=== PATIENT | female | born 1930 | race Caucasian/White ===

== ENCOUNTER 2016-07-23 17:36 | Inpatient (IN) | payer OTHER ==
[~2016-07-23] VITALS: Ht 157.5 cm; Wt 57.8 kg
[~2016-07-23 17:36] MED LIST: ACID REDUCER 1150 MG PO; ADULT SUPPOSIT1 EACH PR; ARICEPT5 MG PO; ARTIFICIAL TEAR1510 BOTH EYES; ARTIFICIALS TEA30 ML BOTH EYES; ASPIR 8181 M1 PO; ASPIRIN325 MG PO; ASPIRIN81 M2 PO; Aspirin Chewable PO; CALCIUM MAGNESIUM ZI; CALCIUM/MAGNES1 EACH PO; CALTRATE PLUS1 EACH PO; COLACE100 MG PO; FOLIC ACID; FOLIC ACID1 MG PO; HYDROCHLOROTHIA25 MG PO; IRON PO; IRON325 M1 PO; Keppra PO; LIDOCAINE700 MG TD; LIPITOR10 MG PO; LISINOPRIL40 MG PO; LUBRIFRESH PM3.5 GM RIGHT EYE; Lipitor PO; Lopressor PO; METHOTREXATE2.5 MG PO; METOPROLOL TART25 MG PO; METOPROLOL TART50 MG PO; MILK OF MAGN PO; MULTI VITAMIN1 EACH PO; NAMENDA10 MG PO; NEURONTIN300 MG PO; NORVASC5 MG PO; OMEPRAZOLE20 MG PO; PLAVIX75 MG PO; PROBIOTIC1 EAC1 PO; Plavix PO; TYLENOL REGULA325 MG PO; TYLENOL WITH C1 EACH PO; ULTRAM50 MG PO; VITAMIN B PO; VITAMIN D-3 PO; VITAMIN D1000 UNIT PO; VITAMIN E400 UNIT PO; Vitamin B Complex PO; Vitamin-E PO; XANAX0.25 MG PO; XANAX0.5 MG PO; Xanax PO; ZOFRAN4 MG PO; Zantac,Taladine PO; [UNRECOGNIZED DRUG - OTHER] PO
[2016-07-23] MEDS ORDERED: TRAMADOL HCL50 MG PO (21:05)
[2016-07-23] MEDS ORDERED: BENGAY113 GM TP (21:07)
[2016-07-23] MEDS ORDERED: ACIDOPHILUS PR1 EACH PO (21:09)
[2016-07-23 21:11] LABS: HEMATOCRIT 54.7 % (36.0-46.0); MCH 28.4 PG (29.0-34.0); MCHC 33.1 G/DL (30.0-36.0); MCV 85.7 FL (83-99); MEAN PLAT.VOLUME 10.3 uM^3 (9.5-12.4); PLATELET COUNT 445 K/uL (156-360); RBC DIS.WIDTH-CV 21.4 % (11.8-14.6); RBC DIS.WIDTH-SD 63.3 % (39-53); RED BLOOD COUNT 6.38 M/uL (3.80-5.20); WHITE BLOOD COUNT 8.3 K/uL (4.1-10.2)
[2016-07-23 21:15] LABS: POTASSIUM ND MEQ/L (3.7-5.4)
[2016-07-23] MEDS ORDERED: ROBITUSSIN100 MG/5 M PO (21:20)
[2016-07-23] MEDS ORDERED: BENADRYL25 MG PO (21:20)
[2016-07-23 21:23] LABS: CHLORIDE 96 mEq/L (99-109); SODIUM 125 mEq/L (136-147)
[2016-07-23 21:24] LABS: GLUCOSE 98 mg/dL (70-99)
[2016-07-23 21:26] LABS: ANION GAP 11 MEQ/L (2-14)
[2016-07-23 21:28] LABS: GFR ESTIMATE (CALCULATED) > 59 mL/min/
[2016-07-23 21:29] LABS: UREA NITROGEN (BUN) 13 mg/dL (9-23)
[2016-07-23 23:04] VITALS: BP 150/85
[2016-07-24 04:33] VITALS: BP 132/79
[2016-07-24 05:56] LABS: HEMATOCRIT 53.8 % (36.0-46.0); MCH 29.1 PG (29.0-34.0); MCHC 32.9 G/DL (30.0-36.0); MCV 88.3 FL (83-99); MEAN PLAT.VOLUME 9.9 uM^3 (9.5-12.4); PLATELET COUNT 362 K/uL (156-360); RBC DIS.WIDTH-SD 62.7 % (39-53); RED BLOOD COUNT 6.09 M/uL (3.80-5.20); WHITE BLOOD COUNT 6.4 K/uL (4.1-10.2)
[2016-07-24 06:46] LABS: ANION GAP 10 MEQ/L (2-14); CHLORIDE 98 MEQ/L (99-109); GFR ESTIMATE (CALCULATED) > 59 mL/min/; GLUCOSE 139 mg/dL (70-99); POTASSIUM 4.1 MEQ/L (3.7-5.4); SAMPLE HEMOLYSIS CHECK 0; SAMPLE ICTERIC CHECK 0; SAMPLE LIPEMIA CHECK 0; SODIUM 131 MEQ/L (136-147); UREA NITROGEN (BUN) 13 mg/dL (9-23)
[2016-07-24 08:00] VITALS: BP 127/83
[2016-07-24 12:00] VITALS: BP 119/67
[2016-07-24 16:00] VITALS: BP 112/63
[2016-07-24 21:31] VITALS: BP 127/68
[2016-07-25] VITALS (8 sets, daily range): BP systolic 120–153; BP diastolic 62–87
[2016-07-25 07:05] LABS: HEMATOCRIT 50.5 % (36.0-46.0); MCH 28.9 PG (29.0-34.0); MCHC 32.7 G/DL (30.0-36.0); MCV 88.4 FL (83-99); MEAN PLAT.VOLUME 9.8 uM^3 (9.5-12.4); PLATELET COUNT 397 K/uL (156-360); RBC DIS.WIDTH-CV 19.8 % (11.8-14.6); RBC DIS.WIDTH-SD 62.7 % (39-53); RED BLOOD COUNT 5.71 M/uL (3.80-5.20)
[2016-07-25 07:15] LABS: WHITE BLOOD COUNT 16.1 K/uL (4.1-10.2)
[2016-07-25 07:26] LABS: ANION GAP 8 MEQ/L (2-14); CHLORIDE 99 MEQ/L (99-109); GFR ESTIMATE (CALCULATED) 56 mL/min/; POTASSIUM 4.4 MEQ/L (3.7-5.4); SAMPLE HEMOLYSIS CHECK 0; SAMPLE ICTERIC CHECK 0; SAMPLE LIPEMIA CHECK 0; SODIUM 130 MEQ/L (136-147); UREA NITROGEN (BUN) 18 mg/dL (9-23)
[2016-07-25 07:31] LABS: GLUCOSE 83 mg/dL (70-99)
[2016-07-25 09:55] LABS: ABS NEUTROPHIL COUNT 13.64; ANISOCYTOSIS 1+; DELETE MACHINE DIFF? YES; EOSINOPHIL ABS CT 0.16; MACROCYTES OCC; PLAT.SUFFICIENCY INCREASED; SPHEROCYTES OCC; USER ID SDF
[2016-07-25] MEDS ORDERED: PREDNISONE10 MG PO (11:31)
[2016-07-25] MEDS ORDERED: AMLODIPINE BESY10 MG PO (11:31)
[2016-07-26 04:16] VITALS: BP 110/59
[2016-07-26 08:16] VITALS: BP 148/71
[2016-07-26 10:30] LABS: HEMATOCRIT 49.9 % (36.0-46.0); MCH 29.1 PG (29.0-34.0); MCHC 32.5 G/DL (30.0-36.0); MCV 89.7 FL (83-99); MEAN PLAT.VOLUME 9.8 uM^3 (9.5-12.4); PLATELET COUNT 363 K/uL (156-360); RBC DIS.WIDTH-CV 20.1 % (11.8-14.6); RBC DIS.WIDTH-SD 64.2 % (39-53); RED BLOOD COUNT 5.56 M/uL (3.80-5.20)
[2016-07-26 10:31] LABS: WHITE BLOOD COUNT 10.4 K/uL (4.1-10.2)
[2016-07-26 10:55] LABS: ANION GAP 8 MEQ/L (2-14); CHLORIDE 103 MEQ/L (99-109); GFR ESTIMATE (CALCULATED) > 59 mL/min/; GLUCOSE 88 mg/dL (70-99); MAGNESIUM 1.9 mg/dl (1.3-2.7); POTASSIUM 4.1 MEQ/L (3.7-5.4); SAMPLE HEMOLYSIS CHECK 0; SAMPLE ICTERIC CHECK 0; SAMPLE LIPEMIA CHECK 0; SODIUM 136 MEQ/L (136-147); UREA NITROGEN (BUN) 14 mg/dL (9-23)
[2016-07-26 12:07] VITALS: BP 124/73
[2016-07-26 12:26] LABS: ADD MIUA? NO; BILIRUBIN NEGATIVE; BLOOD NEGATIVE; COLOR YELLOW ((YELLOW)); GLUCOSE (STRIP) NEGATIVE; KETONES NEGATIVE; LEUKOCYTES NEGATIVE; NITRITE NEGATIVE; PROTEIN (STRIP) NEGATIVE
[2016-07-26 12:30] LABS: UCUL ADDED? NO
== END 2016-07-26 15:12 | DRG 916 ==
LOC: EME → EDBD 17:36 → EME 17:36 → EDOF 21:25 → 5WEST 22:47
PROVIDERS: Emergency Medicine; Family Medicine; Internal Medicine; Nurse Practitioner Adult Health
DX: T78.3XXA Angioneurotic edema, initial encounter (principal); T46.4X5A Adverse effect of angiotensin-converting-enzyme inhibitors, initial encounter; E87.1 Hypo-osmolality and hyponatremia; E78.5 Hyperlipidemia, unspecified; I10 Essential (primary) hypertension; E86.0 Dehydration; D75.1 Secondary polycythemia; Z95.5 Presence of coronary angioplasty implant and graft; F03.90 Unspecified dementia, unspecified severity, without behavioral disturbance, psychotic disturbance, mood disturbance, and anxiety; R21 Rash and other nonspecific skin eruption; I50.9 Heart failure, unspecified; Z88.6 Allergy status to analgesic agent; Z88.2 Allergy status to sulfonamides; Z86.73 Personal history of transient ischemic attack (TIA), and cerebral infarction without residual deficits; Z66 Do not resuscitate; T37.0X5A Adverse effect of sulfonamides, initial encounter
CPT/HCPCS: 71010; 80048; 81003; 83735; 84999; 85025; 85027; 99281; 99285; G0378; J2930; J7030; J7512

== ENCOUNTER 2017-04-06 22:56 | Emergency (ER) | payer OTHER ==
[~2017-04-06] VITALS: Ht 162.6 cm; Wt 54.3 kg
[~2017-04-06 22:56] MED LIST changes: +ACIDOPHILUS PR1 EACH PO; +AMLODIPINE BESY10 MG PO; +BENADRYL25 MG PO; +BENGAY113 GM TP; +PREDNISONE10 MG PO; +ROBITUSSIN100 MG/5 M PO; +TRAMADOL HCL50 MG PO
[2017-04-07 05:28] VITALS: BP 148/94
== END 2017-04-07 05:36 ==
LOC: EME 22:56
PROC: 3E0234Z Introduction of Serum, Toxoid and Vaccine into Muscle, Percutaneous Approach (ICD-10-PCS; principal; 2017-04-06)
DX: S09.8XXA Other specified injuries of head, initial encounter (principal); S00.83XA Contusion of other part of head, initial encounter; S00.81XA Abrasion of other part of head, initial encounter; S00.212A Abrasion of left eyelid and periocular area, initial encounter; W06.XXXA Fall from bed, initial encounter; M25.561 Pain in right knee; Y92.122 Bedroom in nursing home as the place of occurrence of the external cause; M13.861 Other specified arthritis, right knee; I10 Essential (primary) hypertension; E78.5 Hyperlipidemia, unspecified; Z95.5 Presence of coronary angioplasty implant and graft; Z79.02 Long term (current) use of antithrombotics/antiplatelets; Z79.82 Long term (current) use of aspirin; Z23 Encounter for immunization
CPT/HCPCS: 70450; 73564; 99281; 99284